=== PATIENT | female | born 1965 | race Caucasian/White ===

== ENCOUNTER → 2019-07-25 | Outpatient (CLI) | payer BC ==
[2019-07-25 15:08] LABS: APPEARANCE, URINE CLEAR (CLEAR); BACTERIA, URINE AUTO NEGATIVE (NEGATIVE); BILIRUBIN, URINE AUTO NEGATIVE (NEGATIVE); BLOOD, URINE BLOOD NEGATIVE (NEGATIVE); COLOR, URINE COLORLESS (YELLOW); GLUCOSE, URINE (UA) AUTO NEGATIVE (NEGATIVE); KETONE, URINE AUTO NEGATIVE (NEGATIVE); LEUKOCYTE ESTERASE, URINE AUTO NEGATIVE (NEGATIVE); NITRITE, URINE AUTO NEGATIVE (NEGATIVE); PROTEIN, URINE AUTO NEGATIVE (NEGATIVE); RBC, URINE AUTO 0 /HPF (0-3); SPECIFIC GRAVITY URINE AUTO 1.002 (1.002-1.035); SQUAMOUS EPITHELIAL CELL UR AU 0 /HPF (0-6); UROBILINOGEN, URINE AUTO 0.2 mg/dL (0.0-2.0); WBC, URINE AUTO 0 /HPF (0-3)
[2019-07-25 15:37] LABS: MEAN CORPUSCULAR HEMOGLOBIN 32.7 pg (27.0-33.0); MEAN CORPUSCULAR HGB CONC 33.3 g/dl (32.0-36.5); PLATELET COUNT, AUTOMATED 287 10^3/uL (150-450); RED BLOOD COUNT 3.98 10^6/uL (4.00-5.40); WHITE BLOOD COUNT 11.1 10^3/uL (4.0-10.0)
[2019-07-25 16:10] LABS: ALBUMIN 3.7 GM/DL (3.2-5.2); ALT/SGPT 18 U/L (12-78); BILIRUBIN,TOTAL 0.3 MG/DL (0.2-1.0); BLOOD UREA NITROGEN 12 MG/DL (7-18); CALCIUM LEVEL 8.9 MG/DL (8.5-10.1); CARBON DIOXIDE LEVEL 30 MEQ/L (21-32); CHLORIDE LEVEL 109 MEQ/L (98-107); CREATININE FOR GFR 0.87 MG/DL (0.55-1.30); FREE T4 1.08 NG/DL (0.76-1.46); GLOMERULAR FILTRATION RATE > 60.0 (>51); GLUCOSE, FASTING 122 MG/DL (70-100); POTASSIUM SERUM 3.8 MEQ/L (3.5-5.1); SODIUM LEVEL 144 MEQ/L (136-145); TOTAL PROTEIN 6.7 GM/DL (6.4-8.2)
== END ==
LOC: M LAB 13:58
PROVIDERS: ATTEND Family Medicine
DX: R53.83 Other fatigue (principal)

== ENCOUNTER → 2019-07-28 | Outpatient (REF) | payer BC | LOC: M LAB REF 19:26 | PROVIDERS: ATTEND Family Medicine | DX: R53.83 Other fatigue (principal) ==

== ENCOUNTER → 2019-08-02 | Outpatient (CLI) | payer BC ==
[~2019-08-02] MED LIST: GASTROGRAFIN SOLUTION 30ML (Q9963) As Ordered ONE; ISOVUE-370 76% 100ML VIAL (Q9967) As Ordered ONE
--- NOTE | 2019-08-02 19:48 | REP ---
CT ABDOMEN AND PELVIS WITH ORAL AND IV CONTRAST: TECHNIQUE: Axial contrast enhanced images from the lung bases to the pubic symphysis using 100 mL Isovue 370 intravenous contrast material with multiplanar reformations. Visualized lung bases demonstrate interstitial fibrotic change with several small subpleural blebs. On the medial right infrahilar region on the most superior image, there is a partially imaged structure which is round and is measuring water density. Diameter is 1.2 cm maximally. This could represent a bronchogenic cyst or low density lymph node. The liver, spleen, adrenals, pancreas and kidneys appear unremarkable. There is no hydronephrosis. There is no abdominal aortic aneurysm. There is no adenopathy in the abdomen or pelvis. There is no bowel thickening. There is no free air. There is a very small amount of free fluid in the cul-de-sac. The patient has had a prior appendectomy. There is no pelvic mass. Urinary bladder is mildly distended and grossly unremarkable. Note is made of spondylolysis of L5 with mild anterior grade 1 spondylolisthesis of L5 on S1 associated with moderate degenerative disc disease at L5-S1. IMPRESSION: On the most superior image, there is a partially imaged rounded low density structure in the medial right infrahilar region with a maximum diameter of 1.2 cm. This could represent a bronchogenic cyst or low density lymph node. Recommend CT of the chest with IV contrast to further evaluate. There are scattered fibrotic changes in the visualized lung bases as well as several small subpleural blebs. There is mild free fluid in the cul-de-sac. No acute abnormalities are seen in the abdomen or pelvis. Spondylolysis L5 with mild anterior grade 1 spondylolisthesis of L5 on S1, with moderate degenerative disc changes at L5-S1. Electronically Signed by Alli Tate MD 08/02/2019 08:25 P
== END ==
LOC: M RAD 14:42
PROVIDERS: ATTEND Family Medicine
DX: R10.9 Unspecified abdominal pain (principal)
CPT/HCPCS: 74177; Q9963; Q9967

== ENCOUNTER → 2019-08-25 | Outpatient (CLI) | payer BC ==
[~2019-08-25] MED LIST changes: -GASTROGRAFIN SOLUTION 30ML (Q9963) As Ordered ONE
--- NOTE | 2019-08-25 21:01 | REP ---
Clinical: Questionable hilar mass. Technique: Axial contrast enhanced images from the thoracic inlet to the upper abdomen with coronal and sagittal re-formations using 75 ml Isovue 370 intravenous contrast material. Comparison: CT of the abdomen dated 08/02/2019. Findings: The small 1.4 cm round low density lesion in the medial right infrahilar lung zone is again noted and appears relatively unchanged. Mildly prominent bilateral hilar lymph nodes are also appreciated which measure up to approximately 1.5 cm. New areas of linear atelectasis are identified in the right lower lobe and to a lesser extent the basilar right middle lobe and lingula. Underlying chronic moderate COPD/emphysematous changes with few scattered bullae/blebs are identified measuring up to approximately 1.4 cm. No effusion. No pneumothorax. Tracheobronchial tree is patent. Mediastinum demonstrates normal thoracic aorta, pulmonary vasculature and heart/pericardium. Surrounding musculoskeletal structures are intact. Limited upper abdomen demonstrates normal bilateral adrenal glands. Impression: 1. Small 1.4 cm round possible cystic structure along the medial right infrahilar lung zone may represent lymph node or possible bronchogenic cyst. Mild bilateral hilar adenopathy and mild basilar atelectasis (right greater than left) are also identified on current examination and short-term follow-up to resolution may be warranted at 3-6 months. 2. Moderate COPD/emphysematous changes. Electronically Signed by Arun Naik MD 08/25/2019 08:52 P
== END ==
LOC: M RAD 09:43
PROVIDERS: ATTEND Family Medicine
DX: R91.8 Other nonspecific abnormal finding of lung field (principal)
CPT/HCPCS: 71260; Q9967